=== PATIENT | male | born 1975 | race African-American/Black ===

== ENCOUNTER 2024-02-02 11:19 | Emergency (ER) | payer SELFPAY ==
[~2024-02-02] VITALS: Ht 182.9 cm; Wt 137.0 kg
[2024-02-02 11:26] VITALS: O2SAT 93
[2024-02-02 12:16] LABS: BASOPHILS % 0.2 % (0.0-2.0); DIFFERENTIAL COMMENT 0; EOSINOPHILS % 0.7 % (0.0-5.0); HEMATOCRIT. 50.1 % (42.0-52.0); HEMOGLOBIN. 16.2 g/dL (14.0-18.0); LYMPHOCYTES % 10.9 % (20.0-50.0); MEAN CORPUSCULAR HEMOGLOBIN 32.6 pg (28.0-32.0); MEAN CORPUSCULAR HGB CONC 32.2 g/dL (31.0-37.0); MEAN PLATELET VOLUME 10.2 fl (7.4-10.4); MONOCYTES % 4.6 % (2.0-8.0); NEUTROPHILS % 83.6 % (40.0-76.0); PLATELET 218 x1000/uL (130-400); RED BLOOD CELL COUNT 4.96 mill/uL (4.7-6.1); RED CELL DISTRIBUTION WIDTH 13.4 % (11.6-14.6); WHITE BLOOD COUNT 19.7 x1000/uL (4.5-11.0)
[2024-02-02 12:21] LABS: CHLORIDE 107 mEq/L (98-107); SODIUM 140 mEq/L (136-145)
[2024-02-02 12:22] LABS: CALCIUM 9.2 mg/dL (8.7-10.4); CARBON DIOXIDE 26 mEq/L (21-32)
[2024-02-02 12:27] LABS: CREATININE 0.9 mg/dL (0.6-1.3); GLUCOSE 120 mg/dL (70-105); UREA NITROGEN BLOOD 10 mg/dL (9-23)
[2024-02-02] MEDS: KETOROLAC 15MG/ML VIAL IV NR (12:33)
[2024-02-02 12:41] LABS: ALANINE AMINOTRANSFERASE 15 IU/L (10-49); ALBUMIN 4.3 g/dL (3.2-4.8); ASPARTATE AMINOTRANSFERASE 18 IU/L (<34); BILIRUBIN DIRECT 0.2 mg/dL (<=3.0); BILIRUBIN TOTAL 0.8 mg/dL (0.1-1.0); PROTEIN TOTAL 7.8 g/dL (6.0-8.3)
[2024-02-02 15:06] LABS: CLARITY URINE CLEAR (CLEAR); COLOR URINE YELLOW (YELLOW); GLUCOSE URINE NEGATIVE (NEGATIVE); KETONES URINE NEGATIVE (NEGATIVE); LEUKOCYTE ESTERASE URINE NEGATIVE (NEGATIVE); NITRITE URINE NEGATIVE (NEGATIVE); OCCULT BLOOD URINE NEGATIVE (NEGATIVE); PROTEIN URINE NEGATIVE (NEGATIVE); SPECIFIC GRAVITY URINE 1.016 (1.005-1.030)
[2024-02-02 15:37] VITALS: BP 162/95; PULSE 85; RESP 15; TEMP 36.83628; O2SAT 99
== END 2024-02-02 15:41 | disposition home or self-care (01) ==
LOC: ER 11:29
DX: K43.9 Ventral hernia without obstruction or gangrene (principal); K56.699 Other intestinal obstruction unspecified as to partial versus complete obstruction; J45.909 Unspecified asthma, uncomplicated; I10 Essential (primary) hypertension; F19.90 Other psychoactive substance use, unspecified, uncomplicated; Z98.890 Other specified postprocedural states
CPT/HCPCS: 80076; 80048; 81003; 83690; 85025; 36415; 71045; 74176; 93005; 96374; 99285; J1885; Z7610 ×3